=== PATIENT | female | born 1995 | race Native Hawaiian/Other Pacific Islander ===

== ENCOUNTER 2021-08-16 21:03 | Emergency (ER) | payer BC, OTHER ==
[~2021-08-16] VITALS: Ht 170.2 cm; Wt 82.6 kg
[2021-08-16 21:50] VITALS: BP 138/97; TEMP 98.1
== END 2021-08-16 21:50 | disposition home or self-care (01) ==
LOC: ED 21:03
DX: S00.03XA Contusion of scalp, initial encounter (principal); S40.812A Abrasion of left upper arm, initial encounter; S50.812A Abrasion of left forearm, initial encounter; S70.12XA Contusion of left thigh, initial encounter; V86.65XA Passenger of 3- or 4- wheeled all-terrain vehicle (ATV) injured in nontraffic accident, initial encounter; Y92.89 Other specified places as the place of occurrence of the external cause
CPT/HCPCS: 99282